=== PATIENT | female | born 1950 | race American Indian/Alaskan Native ===

== ENCOUNTER → 2019-02-12 15:07 | Outpatient (CLI) | payer OTHER, SELFPAY ==
--- NOTE | 2019-02-12 | DI.ECHO.S_ITS ---
[facility]---------+ [facility] +---------+ : : [address] : : : : [id number] : : : : Phone: [phone] : [phone]+ Echocardiogram Report + + :Name: MAGDA AREVALO Study Date: 02/12/2019 Height: 69 in : :[facility] Weight: 288 lb : : Gender: Female BSA: 2.4 m2 : :: 1950 Age: 69 yrs BP: 130/92 mmHg: :Reason For Study: CAD : : Performed By: Kristen Luque : :Referring: MALI DUNLAP : + + Interpretation Summary 1) Normal left ventricular thickness, size, wall motion, and systolic function (EF 60-65%). 2) Normal right ventricular size and function. 3) The left atrium is moderately dilated. 4) No significant valvular abnormalities. 5) The ascending aorta is mild-moderately enlarged at 4.5cm. 6) Hypertension present during the study (130/92 mmHg). 7) No prior Echo available for comparison. Procedure: A two-dimensional transthoracic echocardiogram with color flow and Doppler was performed. The study quality was technically adequate. Most of the acoustic windows were suboptimal, but the best imaging was obtained from the subcostal window. The patient was in normal sinus rhythm during the exam. Left Ventricle: The left ventricle is normal in size, wall thickness, and systolic function without any focal wall motion abnormalities. The ejection fraction is estimated to be 60-65%. Diastolic parameters suggest a relaxation abnormality of the left ventricle, consistent with probable normal filling pressures. Right Ventricle: The right ventricle grossly appears normal in size with probable normal systolic function. Atria: The left atrium is moderately dilated. Right atrial size is normal. The interatrial septum is intact with no evidence for an atrial septal defect. Mitral Valve: The mitral valve is grossly normal. There is mild mitral regurgitation. Aortic Valve: The aortic valve opens well. No aortic regurgitation is present. Tricuspid Valve: The tricuspid valve is normal in structure and function. There is trace tricuspid regurgitation. The right ventricular systolic pressure is estimated to be at least 27 mmHg based on an estimated right atrial pressure of 3 mm Hg. Pulmonic Valve: The pulmonic valve is not well visualized. There is no pulmonic valvular regurgitation. Great Vessels: The aortic root is normal size. The ascending aorta is mild- moderately enlarged. The aortic arch is at the upper limits of normal in size. The IVC is of normal diameter and collapses greater than 50% with a sniff. This suggests a low right atrial pressure of 3 mm Hg. Pericardium/ Pleura There is no pericardial effusion. There is no pleural effusion. MMode/2D Measurements & Calculations LVIDd: 4.9 cm Ao root diam: 3.4 cm LVIDs: 2.5 cm Aortic Jxn: 3.0 cm FS: 49.5 % asc Aorta Diam: 4.5 cm EPSS: 0.65 cm Ao Arch Diam (Prox Trans): 3.4 cm IVSd: 1.1 cm LVPWd: 0.96 cm LV joyce. diameter/BSA (cm/m^2): 2.0 LV sys. diameter/BSA (cm/m^2): 1.0 LA dimension: 3.9 cm RA long axis: 5.1 cm LA A2 area: 22.5 cm2 RA area: 14.1 cm2 LA A4 area: 27.5 cm2 RA vol: 32.7 ml LA length (vol): 6.1 cm RA : 13.6 ml/m2 LA vol: 86.5 ml IVC diam: 0.91 cm LA vol index: 35.9 ml/m2 RVDd major: 5.8 cm RVD1 (basal): 3.3 cm RVD2 (mid): 3.2 cm Doppler Measurements & Calculations Ao V2 max: 180.1 cm/sec MV E max ruddy: 73.3 cm/sec Ao V2 mean: 108.7 cm/sec MV A max ruddy: 96.1 cm/sec Ao max P.0 mmHg MV E/A: 0.76 Ao mean P.8 mmHg Med Peak E' Ruddy: 5.6 cm/sec Ao V2 VTI: 42.2 cm E/E' med: 13.1 Lat Peak E' Ruddy: 6.0 cm/sec E/E' lat: 12.2 E/e' average: 12.7 MV dec time: 0.27 sec MV P1/2t: 78.3 msec TR max ruddy: 245.2 cm/sec MV P1/2t max ruddy: 71.9 cm/sec TR max P.1 mmHg MVA(P1/2t): 2.8 cm2 PA V2 max: 94.0 cm/sec PA V2 mean: 61.6 cm/sec PA mean P.8 mmHg PA Accel Time: 0.12 sec Reading Physician:11:[id number] AM
== END ==
PROVIDERS: PCP Physician Assistant Medical; Visit Provider Internal Medicine Cardiovascular Disease
DX: I77.89 Other specified disorders of arteries and arterioles (principal)
CPT/HCPCS: 93306

== ENCOUNTER → 2020-04-22 14:23 | Outpatient (CLI) | payer OTHER, SELFPAY ==
--- NOTE | 2020-04-22 | DI.ECHO.S_ITS ---
[facility]---------+ [facility] +---------+ : : [address] : [address] : : : : [id number] : : : : Phone: [phone] : : [phone]+ Echocardiogram Report + + :Name: MAGDA AREVALO Study Date: 04/22/2020 Height: 68 in : :[facility] Weight: 290 lb : : Gender: Female BSA: 2.4 m2 : :: 1950 Age: 70 yrs BP: 160/88 mmHg: :Reason For Study: OTHER DISORDERS OF ARTERIES : :Ordering Physician: DOC, : :MALI Performed By: Jaqui Regalado : :Referring: MALI DUNLAP : + + Interpretation Summary 1) Normal left ventricular thickness, size, wall motion, and systolic function (EF 60-65%). 2) Normal right ventricular size and function. 3) The left atrium is moderately dilated. 4) No significant valvular abnormalities. 5) The ascending aorta is mild-moderately enlarged at 4.6cm. 6) Hypertension present during the study (160/88 mmHg). 7) Compared to the Echo done 02/12/2019, BP is higher on this study. No significant change in cardiac structure. Procedure: A two-dimensional transthoracic echocardiogram with color flow and Doppler was performed. The study quality was technically adequate. Comparison is made with the echocardiogram of 02/12/2019. Left Ventricle: The left ventricle is normal in size. Left ventricular wall thickness is at the upper limits of normal. Proximal septal thickening is noted. The ejection fraction is estimated to be 60-65%. Diastolic parameters suggest a pseudonormalization pattern, consistent with probable elevated filling pressures. Right Ventricle: The right ventricle is normal in size and function. Atria: The left atrium is moderately dilated. Right atrial size is normal. There is no Doppler evidence for an interatrial shunt. Mitral Valve: The mitral valve is normal in structure and function. There is mild mitral regurgitation. Aortic Valve: The aortic valve is trileaflet. The aortic valve opens well. There is no aortic valve stenosis. No aortic regurgitation is present. Tricuspid Valve: The tricuspid valve is not well visualized, but is grossly normal. There is mild tricuspid regurgitation. The right ventricular systolic pressure is estimated to be at least 41 mmHg based on an estimated right atrial pressure of 3 mm Hg. Pulmonic Valve: The pulmonic valve is not well visualized. There is trace pulmonic regurgitation. Great Vessels: The aortic root is normal size. The ascending aorta is mild- moderately enlarged. The IVC is of normal diameter and collapses greater than 50% with a sniff. This suggests a low right atrial pressure of 3 mm Hg. Pericardium/ Pleura There is no pericardial effusion. There is no pleural effusion. MMode/2D Measurements & Calculations LVIDd: 5.4 cm LVOT diam: 2.1 cm LVIDs: 3.5 cm Ao root diam: 3.2 cm FS: 35.7 % asc Aorta Diam: 4.6 cm EPSS: 0.57 cm Ao Arch Diam (Prox Trans): 3.4 cm IVSd: 1.1 cm LVPWd: 1.0 cm LV joyce. diameter/BSA (cm/m^2): 2.2 LV sys. diameter/BSA (cm/m^2): 1.4 LA A2 area: 29.3 cm2 RA long axis: 5.6 cm LA A4 area: 23.4 cm2 RA area: 22.8 cm2 LA length (vol): 5.9 cm RA vol: 78.8 ml LA vol: 98.0 ml RA : 32.9 ml/m2 LA vol index: 40.9 ml/m2 IVC diam: 1.7 cm RVD1 (basal): 3.0 cm TAPSE: 2.3 cm Doppler Measurements & Calculations Ao V2 max: 161.1 cm/sec LVOT Max Ruddy: 112.8 cm/sec Ao V2 mean: 104.1 cm/sec LV V1 max P.1 mmHg Ao max P.4 mmHg LV V1 VTI: 29.0 cm Ao mean P.1 mmHg CARSON(I,D): 2.7 cm2 Ao V2 VTI: 36.1 cm CARSON(V,D): 2.4 cm2 sev ratio: 0.80 CARSON indexed to BSA (cm^2/m^2): 1.1 MV E max ruddy: 86.0 cm/sec TR max ruddy: 306.4 cm/sec MV A max ruddy: 89.7 cm/sec TR max P.3 mmHg MV E/A: 0.96 PA V2 max: 73.7 cm/sec Med Peak E' Ruddy: 6.6 cm/sec PA V2 mean: 49.8 cm/sec E/E' med: 13.0 PA mean P.2 mmHg Lat Peak E' Ruddy: 5.4 cm/sec PA pr(Accel): 17.3 mmHg E/E' lat: 16.0 E/e' average: 14.5 MV dec time: 0.26 sec SV(OT): 98.8 ml Reading Physician:01:51 PM
== END ==
PROVIDERS: PCP Physician Assistant Medical; Referring Provider Internal Medicine Cardiovascular Disease; Visit Provider Internal Medicine Cardiovascular Disease
DX: I08.1 Rheumatic disorders of both mitral and tricuspid valves (principal); I77.89 Other specified disorders of arteries and arterioles
CPT/HCPCS: 93306

== ENCOUNTER → 2022-08-11 12:18 | Outpatient (CLI) | payer OTHER, SELFPAY ==
--- NOTE | 2022-08-11 | DI.ECHO.S_ITS ---
[place]---------+ [facility] +---------+ : : [address] : : : : [id number] : : : : Phone: [phone] : : [phone] +[phone]+ Echocardiogram Report + + :Name: MAGDA AREVALO Study Date: 08/11/2022 Height: 68.5 in: :[facility] ReadingLocation: Weight: 280 lb : : Gender: Female BSA: 2.4 m2 : :: 1950 Age: 72 yrs BP: 125/82 mmHg: :Reason For Study: ASCENDING AORTA ENLARGEMENT : :Ordering Physician: DOC, : :MALI Performed By: Jaqui Regalado : :Referring: MALI DUNLAP : + + Interpretation Summary 1) Normal left ventricular thickness, size, wall motion, and systolic function (EF 60-65%). 2) Normal right ventricular size and function. 3) No significant valvular abnormalities. 4) The ascending aorta is mild-moderately enlarged at 4.6cm. 5) Compared to the Echo done 04/22/2020, no significant change. Procedure: A two-dimensional transthoracic echocardiogram with color flow and Doppler was performed. The study quality was technically adequate. Comparison is made with the echocardiogram of 04/22/2020. The patient was in sinus rhythm with heart rates between 59-71 bpm during the exam. Left Ventricle: The left ventricle is normal in size. Left ventricular wall thickness is normal. The ejection fraction is estimated to be 60-65%. Left ventricular systolic function appears normal without focal wall motion abnormalities. Diastolic function could not be accurately assessed due to contradictory data. Right Ventricle: The right ventricle is normal in size and function. Atria: The left atrial size is normal. Right atrial size is normal. There is no Doppler evidence for an interatrial shunt. Mitral Valve: The mitral valve leaflets appear borderline thickened, but open well. There is trace mitral regurgitation. Aortic Valve: The aortic valve is grossly normal. The aortic valve opens well. There is no aortic valve stenosis. No aortic regurgitation is present. Tricuspid Valve: The tricuspid valve is normal in structure and function. There is trace tricuspid regurgitation. The right ventricular systolic pressure is estimated to be at least 32 mmHg based on an estimated right atrial pressure of 3 mm Hg. Pulmonic Valve: The pulmonic valve is not well visualized. There is no pulmonic valvular regurgitation. Great Vessels: The aortic root is normal size. The ascending aorta is mild- moderately enlarged. The IVC is of normal diameter and collapses greater than 50% with a sniff. This suggests a low right atrial pressure of 3 mm Hg. Pericardium/ Pleura There is no pericardial effusion. There is no pleural effusion. MMode/2D Measurements & Calculations LVIDd: 5.4 cm LVOT diam: 2.0 cm LVIDs: 3.2 cm Ao root diam: 3.4 cm FS: 40.2 % asc Aorta Diam: 4.6 cm IVSd: 0.94 cm Ao Arch Diam (Prox Trans): 3.3 cm LVPWd: 1.1 cm LV joyce. diameter/BSA (cm/m^2): 2.3 LV sys. diameter/BSA (cm/m^2): 1.4 LA A2 area: 20.0 cm2 RA long axis: 4.9 cm LA A4 area: 17.7 cm2 RA area: 16.1 cm2 LA length (vol): 5.0 cm RA vol: 45.0 ml LA vol: 60.2 ml RA : 19.0 ml/m2 LA vol index: 25.4 ml/m2 IVC diam: 2.0 cm RVD1 (basal): 3.8 cm RVD2 (mid): 3.1 cm TAPSE: 2.1 cm Doppler Measurements & Calculations Ao V2 max: 182.0 cm/sec LVOT Max Ruddy: 109.9 cm/sec Ao V2 mean: 122.0 cm/sec LV V1 max P.8 mmHg Ao max P.3 mmHg LV V1 VTI: 26.7 cm Ao mean P.8 mmHg CARSON(I,D): 2.3 cm2 Ao V2 VTI: 37.6 cm CARSON(V,D): 1.9 cm2 sev ratio: 0.71 CARSON indexed to BSA (cm^2/m^2): 0.95 MV E max ruddy: 73.4 cm/sec TR max ruddy: 270.0 cm/sec MV A max ruddy: 87.5 cm/sec TR max P.2 mmHg MV E/A: 0.84 PA V2 max: 100.8 cm/sec Med Peak E' Ruddy: 7.1 cm/sec PA V2 mean: 67.6 cm/sec E/E' med: 10.3 PA mean P.1 mmHg Lat Peak E' Ruddy: 3.3 cm/sec PA pr(Accel): 25.9 mmHg E/E' lat: 22.0 E/e' average: 16.2 MV dec time: 0.28 sec SV(LVOT): 85.0 ml Reading Physician:03:58 PM
== END ==
PROVIDERS: PCP Physician Assistant Medical; Referring Provider Internal Medicine Cardiovascular Disease; Visit Provider Internal Medicine Cardiovascular Disease
DX: I77.89 Other specified disorders of arteries and arterioles (principal)
CPT/HCPCS: 93306